=== PATIENT | female | born 1985 | race Caucasian/White ===

== ENCOUNTER 2016-12-04 19:38 | Emergency (ER) | payer MEDICAID ==
[~2016-12-04] VITALS: Ht 157.5 cm; Wt 57.6 kg
[~2016-12-04 19:38] MED LIST: MULTIPLE VITAMI PO; PRENATAL VITAMI1 T10 PO
[2016-12-04 20:40] VITALS: BP 105/58
[2016-12-04] MEDS ORDERED: IBUPROFEN 400 MG TAB PO ONE (23:45)
--- NOTE | 2016-12-04 23:46 | NUR ---
PT TAKEN TO [facility]
--- NOTE | 2016-12-05 00:31 | NUR ---
Dr. Anotny evaluating patient
[2016-12-05 00:55] VITALS: BP 110/60
--- NOTE | 2016-12-05 00:56 | NUR ---
Patient discharged with v/s stable. Written and verbal after care instructions given and explained. Patient alert, oriented and verbalized understanding of instructions. Ambulatory with steady gait. All questions addressed prior to discharge. ID band removed. Patient advised to follow up with PMD. Rx of omeprazole 20mg po given. Patient educated on indication of medication including possible reaction and side effects. Opportunity to ask questions provided and answered.
== END 2016-12-05 00:56 | disposition home or self-care (01) ==
LOC: MED 19:38
DX: R10.9 Unspecified abdominal pain (principal)

== ENCOUNTER 2017-10-24 21:20 | Emergency (ER) | payer MEDICAID ==
[~2017-10-24] VITALS: Ht 157.5 cm; Wt 54.1 kg
[~2017-10-24 21:20] MED LIST changes: -MULTIPLE VITAMI PO; +PREN-385 PO; -PRENATAL VITAMI1 T10 PO
[2017-10-24 21:25] VITALS: BP 98/47
--- NOTE | 2017-10-24 21:30 | NUR ---
PT RETURNED TO LOBBY
--- NOTE | 2017-10-24 21:50 | NUR ---
PT TAKEN TO US
[2017-10-24 21:57] LABS: BASOPHILS # (AUTO) 0.4 K/uL (0.00-0.22); EOSINOPHILS # (AUTO) 0.1 K/uL (0-0.4); HEMATOCRIT 40.2 % (36-48); HEMOGLOBIN 13.8 g/dL (12.0-16.0); LYMPHOCYTES # (AUTO) 2.3 K/uL (2.5-16.5); MEAN CORPUSCULAR HEMOGLOBIN 31 pg (27-31); MEAN CORPUSCULAR HGB CONC 34 g/dL (33-37); MEAN CORPUSCULAR VOLUME 90 fL (80-94); MONOCYTES # (AUTO) 0.7 K/uL (0.8-1.0); NEUTROPHILS # (AUTO) 6.6 K/uL (1.8-7.7); PLATELET COUNT (AUTO) 302 K/uL (140-450); RED BLOOD CELL COUNT(AUTO) 4.49 MIL/uL (4.20-5.40); RED CELL DISTRIBUTION WIDTH 12.1 % (11.6-13.7); WHITE BLOOD COUNT (AUTO) 10.1 K/uL (4.8-10.8)
[2017-10-24 22:17] LABS: APPEARANCE,URINE SL CLOUDY (CLEAR); BILIRUBIN,URINE NEGATIVE (NEGATIVE); BLOOD, URINE 3+ (NEGATIVE); COLOR,URINE YELLOW (YELLOW); LEUKOCYTE ESTERASE ,URINE NEGATIVE (NEGATIVE); NITRITE, URINE NEGATIVE (NEGATIVE); UGLUCOSE NEGATIVE (NEGATIVE)
[2017-10-24 22:22] LABS: ANION GAP 12.9 (8-16); CARBON DIOXIDE 26.5 mmol/L (21-32); CREATININE 0.7 mg/dL (0.6-1.3); POTASSIUM 3.4 mmol/L (3.5-5.1)
[2017-10-24 22:30] LABS: ALBUMIN 3.8 g/dL (3.4-5.0); TOTAL BILIRUBIN 0.4 mg/dL (0.0-1.0)
[2017-10-24 22:34] LABS: RBC,URINE 3-10 (FEW) /HPF (0-5); WBC,URINE 0-5 (RARE) /HPF (0-5)
--- NOTE | 2017-10-24 23:20 | NUR ---
PT AMBULATED TO ER BED 11 AT 2318
--- NOTE | 2017-10-24 23:20 | NUR ---
32/F CAME IN WITHC/O VAGINAL BLEED. PT STATES SHE HAD A "GUSH OF BLOOD WHILE AMBULATING TODAY". PT REPORTS SHE WAS SEEN IN ED LAST MONDAY FOR SIMILAR SYMPTOMS, DX: UTI, GIVEN ANTIBIOTICS, PT REPORTS SHE FINISHED COURSE.PT WAS SEEN BY OB TODAY AND WAS TOLD TO HAVE COMPLET BEDREST. PT REPORTS LOWER ABD CRAMPING, NO ACTIVE BLEEDING AT THIS TIME. REPORTS NAUSEA/VOMITING. A1. DENIES PMH/OTC. VS REPORTS TO ER MD JOSE
[2017-10-24] MEDS ORDERED: METOCLOPRAMIDE 10 MG/2 ML INJ VIAL IVP ONE (23:50)
[2017-10-25 01:05] VITALS: BP 108/69
--- NOTE | 2017-10-25 01:05 | NUR ---
Patient discharged with v/s stable. Written and verbal after care instructions given and explained. Patient alert, oriented and verbalized understanding of instructions. Ambulatory with steady gait. All questions addressed prior to discharge. ID band removed. Patient advised to follow up with PMD. Rx of REGLAN given. Patient educated on indication of medication including possible reaction and side effects. Opportunity to ask questions provided and answered.
== END 2017-10-25 01:05 | disposition home or self-care (01) ==
LOC: MED 21:20
DX: O20.0 Threatened abortion (principal); Z3A.01 Less than 8 weeks gestation of pregnancy; O21.9 Vomiting of pregnancy, unspecified; R42 Dizziness and giddiness; Z79.899 Other long term (current) drug therapy
CPT/HCPCS: 36415; 76817; 80053; 81001; 84702; 85025; 86900; 86901; 96374; 99285; J2765; J7030; Q0092

== ENCOUNTER 2018-12-26 21:42 | Emergency (ER) | payer MEDICAID ==
[~2018-12-26] VITALS: Ht 157.5 cm; Wt 54.0 kg
[2018-12-26 21:57] VITALS: BP 111/79
--- NOTE | 2018-12-26 21:59 | NUR ---
PT AMBULATED TO LOBBY WITH VSS.
--- NOTE | 2018-12-26 22:57 | NUR ---
PATIENT AMBULATED TO ER BED 7.
--- NOTE | 2018-12-26 23:01 | NUR ---
33/F PRESENTS TO ED WITH FAMILY/FRIEND, C/O / BURNING EPIGASTRIC PAIN, RADIATING TO BL UPPER ABD, X3 DAYS. PT REPORTS NAUSEA WHEN PAIN IS AT WORST. LBM YESTERDAY, REPORTS NORMAL BM, DENIES DIARRHEA OR CONSTIPATION. DENIES FEVER. AOX4, GCS 15, RR EVEN AND UNLABORED. LUNG SOUNDS CLEAR BL. BS HYPOACTIVE X4, ABD SOFT ROUND TENDER TO EPIGASTRIC. HX +H.PYLORI 1 MONTH AGO
[2018-12-26] MEDS ORDERED: DICYCLOMINE HCL LIQUID 20 MG, ALUMINUM HYD/MAG/SIMETHICONE 30 ML, LIDOCAINE VISCOUS 2% ... PO ONE ×3 (23:55)
[2018-12-27 00:11] LABS: BASOPHILS % (AUTO) 0.2 % (0.0-2.0); EOSINOPHILS # (AUTO) 0.2 K/uL (0-0.4); EOSINOPHILS % (AUTO) 3.3 % (0.0-4.0); HEMATOCRIT 38.9 % (36-48); HEMOGLOBIN 13.1 g/dL (12.0-16.0); LYMPHOCYTES # (AUTO) 2.6 K/uL (2.5-16.5); LYMPHOCYTES % (AUTO) 38.4 % (20.5-51.1); MEAN CORPUSCULAR HEMOGLOBIN 31 pg (27-31); MEAN CORPUSCULAR HGB CONC 34 g/dL (33-37); MEAN CORPUSCULAR VOLUME 91.1 fL (80-94); MONOCYTES # (AUTO) 0.6 K/uL (0.8-1.0); MONOCYTES % (AUTO) 8.2 % (1.7-9.3); NEUTROPHILS # (AUTO) 3.4 K/uL (1.8-7.7); NEUTROPHILS % (AUTO) 49.9 % (42.2-75.2); PLATELET COUNT (AUTO) 271 K/uL (140-450); RED BLOOD CELL COUNT(AUTO) 4.27 MIL/uL (4.20-5.40); RED CELL DISTRIBUTION WIDTH 12.8 % (11.6-13.7); WHITE BLOOD COUNT (AUTO) 6.8 K/uL (4.8-10.8)
[2018-12-27 00:21] LABS: ANION GAP 13.7 (8-16); CARBON DIOXIDE 25.9 mmol/L (21-32); CREATININE 0.6 mg/dL (0.6-1.3); POTASSIUM 3.6 mmol/L (3.5-5.1)
[2018-12-27 00:28] LABS: ALBUMIN 3.8 g/dL (3.4-5.0); TOTAL BILIRUBIN 1.1 mg/dL (0.0-1.0)
[2018-12-27] MEDS ORDERED: KETOROLAC 30 MG/ML VIAL IM ONE ×2 (00:50→02:15)
[2018-12-27] MEDS ORDERED: ONDANSETRON 4 MG ODT PO ONE (02:15)
[2018-12-27 03:05] VITALS: BP 104/53
--- NOTE | 2018-12-27 03:05 | NUR ---
Patient discharged with v/s stable. Written and verbal after care instructions given and explained. Patient alert, oriented and verbalized understanding of instructions. Ambulatory with steady gait. All questions addressed prior to discharge. ID band removed. Patient advised to follow up with PMD. Rx of BENTYL, ZOFRAN ODT, TYLENOL WITH CODEINE #3 given. Patient educated on indication of medication including possible reaction and side effects. Opportunity to ask questions provided and answered.
== END 2018-12-27 03:05 | disposition home or self-care (01) ==
LOC: MED 21:42
DX: K80.20 Calculus of gallbladder without cholecystitis without obstruction (principal); Z79.899 Other long term (current) drug therapy
CPT/HCPCS: 36415; 74176; 80053; 81002; 81025; 83690; 85025; 96372; 99284; J1885; Q0162